=== PATIENT | female | born 1950 | race Caucasian/White ===

== ENCOUNTER 2016-07-06 13:59 | Emergency (ER) | payer OTHER ==
[2016-07-06] MEDS ORDERED: Ketorolac Tromethamine 60 MG/2 ML VIAL ONE (14:55)
--- NOTE | 2016-07-06 15:33 | ERRECORD ---
[facility] EMERGENCY RECORD HPI BACK (14:45 BGOE) CHIEF COMPLAINT: Patient presents for evaluation of pain, to the right mid back. HISTORIAN: History provided by patient, patient c/o right lower thoracic back pain over past week. 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 was sitting in training over past week so didn't have it evaluated. no numbness/tingling. radiates to lateral back but does not go past axillary line. MECHANISM OF INJURY: Mechanism of injury is unknown. LOCATION: Symptoms are localized to the back, right lower thoracic region. QUALITY: Pain is dull in nature, described as aching. SEVERITY: Maximum severity of symptoms moderate, Currently symptoms are mild. TIME COURSE: Gradual onset of symptoms. ASSOCIATED WITH: No associated abdominal pain, No associated bladder incontinence, No associated bowel incontinence, No associated dysuria, No associated fever, No associated inability to ambulate, No associated motor weakness, No associated numbness, No associated problems with urination, No associated sciatica, No associated tingling. EXACERBATED BY: Patient's condition exacerbated by movement. RELIEVED BY: Patient's condition relieved by time. ROS (14:48 BGOE) CONSTITUTIONAL: Historian denies fever. GI: Historian denies abdominal pain. GENITOURINARY FEMALE: Historian denies dysuria, denies incontinence. MUSCULOSKELETAL: Historian reports arthralgias, knees. NOTES: All systems reviewed, negative except as described above. PAST MEDICAL HISTORY MEDICAL HISTORY: Past medical history includes history of hypertension, which has been treated, Patient is compliant. (14:14 JPER) FEMALE SURGICAL HISTORY: Surgical history of hysterectomy, Surgical history of orthopedic surgery, RIGHT KNEE SCOPE, Surgical history of tubal ligation. (14:14 JPER) PSYCHIATRIC HISTORY: Notes: DENIES. (14:14 JPER) SOCIAL HISTORY: Patient denies alcohol use, Patient denies drug use, Patient has no smoking history. (14:14 JPER) NOTES: Nursing records reviewed, Agree with nursing records, Medication list reviewed. (14:50 BGOE) KNOWN ALLERGIES No Known Drug Allergies CURRENT MEDICATIONS &a-1R&a+25V*p+0X*c1210J*c152B*c15G*c2P*p-0X&a-25V&a+1RName: Mag Dhillon : [id number] MedRec: [id number] AcctNum: [id number] Prepared: Sat Jul 06, 2016 17:03 by Interface Page 1 of 3 pMD [facility] EMERGENCY RECORD Josiah HCT: TABLET : Strength - 40 mg-25 mg : ORAL Patient Dose: once a day (in the morning). (14:15 JPER) Lasix: TABLET : Strength - 20 mg : ORAL Patient Dose: once a day (in the morning). (14:17 JPER) VITAL SIGNS VITAL SIGNS: BP: 172/61, Pulse: 68, Resp: 18, Temp: 97.9 (Oral), O2 sat: 94 on Room Air, Time: 07/06/2016 14:07. (14:07 JPER) BP: 150/66, Pulse: 68, Resp: 18, O2 sat: 95 on RA, Time: 07/06/2016 15:15. (15:15 JPER) PHYSICAL EXAM (14:48 BGOE) CONSTITUTIONAL: Patient afebrile, Pulse normal, Blood pressure, hypertensive, Respiratory rate normal, Patient appears non toxic, Patient appears, in mild pain distress, Patient alert and oriented to person, place and time. HEAD: Head exam normal. EYES: Eye exam included findings of eyelids normal to inspection, Pupils equally round and reactive to light, Extraocular muscles intact. ENT: ENT exam normal. NECK: Neck exam included findings of normal range of motion, Trachea midline. RESPIRATORY CHEST: Respiratory and chest exam normal. CARDIOVASCULAR: Cardiovascular exam included findings of heart rate regular rate and rhythm. ABDOMEN FEMALE: Abdominal exam included findings of abdomen nontender, Bowel sounds normal, obese. no RUQ pain. BACK: Back exam included findings of normal inspection, range of motion normal, Tenderness, paraspinal to the right mid back, ttp over right lower paraspinal muscles of thoracic spine. no ML ttp. patient exquisitely tender and recreates pain. UPPER EXTREMITY: Upper extremity exam included findings of inspection normal, Range of motion normal, Motor strength normal, Sensation intact. LOWER EXTREMITY: Lower extremity exam included findings of inspection normal, Range of motion normal, Motor strength normal, Sensation intact, neg slr. NEURO: Neuro exam findings include patient oriented to person, place and time, [place] coma scale 15, Speech normal, Gait normal, Deep tendon reflexes normal. SKIN: Skin exam included findings of skin warm, dry, and normal in color. PSYCHIATRIC: Psychiatric exam normal. MEDICATION ADMINISTRATION SUMMARY Drug Name: Toradol intramuscular, Dose Ordered: 2 mL, Route: &a-1R&a+25V*p+0X*e2095E*c152B*c15G*c2P*p-0X&a-25V&a+1RName: Mag Dhillon : [id number] MedRec: [id number] AcctNum: [id number] Prepared: Praveen Jul 06, 2016 17:03 by Interface Page 2 of 3 pMD [facility] EMERGENCY RECORD Intramuscular, Status: Given, Time: 14:55 07/06/2016, Detailed record available in Medication Service section. PROBLEM LIST No recorded problems DIAGNOSIS (14:50 BGOE) FINAL: PRIMARY: thoracic back strain, ADDITIONAL: Hypertension. PRESCRIPTION (14:50 BGOE) Flexeril: TABLET : 5 mg : ORAL : Quantity: 5 Unit: mg Route: ORAL Schedule: every 8 hours PRN Dispense: 30 Unit: tab(s) May substitute. Refills: No Refills . NOTES: No Refills. DISPOSITION PATIENT: Disposition Type: Discharge, Disposition: *Discharge Home, Condition: Good. (14:50 BGOE) Patient left the department. (15:22 JPER) Tellez: BGOE=MD Mounika, Harry JPER=JOSE Lee, Edwige &a-1R&a+25V*p+0X*b0675L*c152B*c15G*c2P*p-0X&a-25V&a+1RName: Mag Dhillon : [id number] MedRec: [id number] AcctNum: [id number] Prepared: Praveen Jul 06, 2016 17:03 by Interface Page 3 of 3 pMD MTDD
--- NOTE | 2016-07-06 15:37 | PICIS ---
[facility] EMERGENCY RECORD TRIAGE (14:14 JPER) PATIENT: NAME: Mag Dhillon, AGE: 65, GENDER: female, : Fri1950, TIME OF GREET: Sat Jul 06, 2016 14:00, PREFERRED LANGUAGE: Mongolian, RACE: WHITE, ETHNICITY: Not or , ECODE BILLING MAP: [facility], SSN: [id number], Zip Code: [address], KG WEIGHT: 126.55, PHONE: , , , PERSON ID: [id number], PCP: MD Mancini Grover. (14:14 JPER) COMPLAINT: BACK PAIN. (14:14 JPER) ADMISSION: URGENCY: 4 Non Urgent, ADMISSION SOURCE: Home, TRANSPORT: Walk-in, BED: ED -03. (14:14 JPER) ASSESSMENT: Assessment: PT C/O RIGHT UPPER BACK PAIN RAD TO RUQ X 1 WEEK WORSE TODAY. (14:14 JPER) PAIN: Patient complains of pain described as, aching, on a scale 0-10 patient rates pain as 5, Location RIGHT UPPER POST BACK VARYING FROM 5 TO 8. (14:14 JPER) IMMUNIZATIONS: Flu vaccine up to date, Tetanus not up to date, Pneumococcal vaccine up to date. (14:14 JPER) SIRS SCORING: Heart Rate 55-109 (0), Temp range 96.8-101.1 (0), respiratory rate 12-24 (0), Mental Status altered: no (0). (14:14 JPER) TRIAGE SCREENING: Patient denies suicidal ideation, Patient denies presence of domestic violence. (14:14 JPER) PROVIDERS: TRIAGE NURSE: Edwige Lee RN. (14:14 JPER) VITAL SIGNS: BP 172/61, Pulse 68, Resp 18, Temp 97.9, (Oral), O2 Sat 94, on Room Air, Time 07/06/2016 14:07. (14:07 JPER) KNOWN ALLERGIES No Known Drug Allergies CURRENT MEDICATIONS Benicar HCT: TABLET : Strength - 40 mg-25 mg : ORAL Patient Dose: once a day (in the morning). (14:15 JPER) Lasix: TABLET : Strength - 20 mg : ORAL Patient Dose: once a day (in the morning). (14:17 JPER) VITAL SIGNS VITAL SIGNS: BP: 172/61, Pulse: 68, Resp: 18, Temp: 97.9 (Oral), O2 sat: 94 on Room Air, Time: 07/06/2016 14:07. (14:07 JPER) BP: 150/66, Pulse: 68, Resp: 18, O2 sat: 95 on RA, Time: 07/06/2016 15:15. (15:15 JPER) NURSING ASSESSMENT: BACK (14:22 JPER) CONSTITUTIONAL: Patient arrives ambulatory, Gait steady, History obtained from patient, Patient appears, anxious, obese, uncomfortable, Patient cooperative, Patient alert, Oriented to person, place and time, Skin warm, Skin dry, Skin normal in color, Mucous membranes pink, Mucous membranes &a-1R&a+25V*p+0X*t8950E*c152B*c15G*c2P*p-0X&a-25V&a+1RName: Mag Dhillon : F65 MedRec: [id number] AcctNum: [id number] Prepared: Sat Jul 06, 2016 17:08 by Interface Page 1 of 5 pMD [facility] EMERGENCY RECORD moist, Patient is well-groomed, Patient complains of RIGHT UPPER BACK PAIN X 1 WEEK. PAIN: aching pain, to the upper back, on a scale 0-10 patient rates pain as 5, Pain exacerbated by nothing, Nothing has been tried to alleviate the pain. BACK: Right radial pulse +3(easily palpated, considered normal), Left radial pulse +3(easily palpated, considered normal), Notes: RIGHT UPPER BACK PAIN RAD TO RUQ. NECK: Neck assessment findings include trachea midline. NOTES: Emotional support needed and given, Patient tolerated procedure well. NURSING PROCEDURE: DISCHARGE NOTE (15:15 JPER) DISCHARGE: Patient discharged to home, ambulating without assistance, family driving, accompanied by other family member, Summary of Care printed/ provided, Patient requested and was provided an electronic copy of Discharge Instructions, Transition record given to patient, Discharge instructions given to patient, Prescriptions given and instructions on side effects given, Above person(s) verbalized understanding of discharge instructions and follow-up care, Patient treated and evaluated by physician. BELONGINGS: Belongings remain with patient, Valuables remain with patient. NOTES: Emotional support needed and given, Patient tolerated procedure well. VITAL SIGNS: BP: 150, / 66, Pulse: 68, Resp: 18, O2 sat: 95, on: RA. MEDICATION ADMINISTRATION SUMMARY Drug Name: Toradol intramuscular, Dose Ordered: 2 mL, Route: Intramuscular, Status: Given, Time: 14:55 07/06/2016, Detailed record available in Medication Service section. MEDICATION SERVICE (14:55 BGOE) Toradol intramuscular: Order: Toradol intramuscular (ketorolac tromethamine) - Dose: 2 mL : Intramuscular Schedule: Now Ordered by: Harry Ribera MD Entered by: Harry Ribera MD Sat Jul 06, 2016 14:51 Documented as given by: Edwige Lee RN Sat Jul 06, 2016 14:55 Patient, Medication, Dose, Route and Time verified prior to administration. IM medication, Amount given: 60MG, Medication administered to right hip, Correct patient, time, route, dose and medication confirmed prior to administration, Patient advised of actions and side-effects prior to administration, Allergies confirmed and medications reviewed prior to administration, Administered by MUKUND GARCIA, Patient in position of comfort, Side rails up, Cart in lowest position, Family at bedside. &a-1R&a+25V*p+0X*s2791O*c152B*c15G*c2P*p-0X&a-25V&a+1RName: Mag Dhillon : [id number] MedRec: [id number] AcctNum: [id number] Prepared: Sat Jul 06, 2016 17:08 by Interface Page 2 of 5 pMD [facility] EMERGENCY RECORD HPI BACK (14:45 BGOE) CHIEF COMPLAINT: Patient presents for evaluation of pain, to the right mid back. HISTORIAN: History provided by patient, patient c/o right lower thoracic back pain over past week. 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 was sitting in training over past week so didn't have it evaluated. no numbness/tingling. radiates to lateral back but does not go past axillary line. MECHANISM OF INJURY: Mechanism of injury is unknown. LOCATION: Symptoms are localized to the back, right lower thoracic region. QUALITY: Pain is dull in nature, described as aching. SEVERITY: Maximum severity of symptoms moderate, Currently symptoms are mild. TIME COURSE: Gradual onset of symptoms. ASSOCIATED WITH: No associated abdominal pain, No associated bladder incontinence, No associated bowel incontinence, No associated dysuria, No associated fever, No associated inability to ambulate, No associated motor weakness, No associated numbness, No associated problems with urination, No associated sciatica, No associated tingling. EXACERBATED BY: Patient's condition exacerbated by movement. RELIEVED BY: Patient's condition relieved by time. ROS (14:48 BGOE) CONSTITUTIONAL: Historian denies fever. GI: Historian denies abdominal pain. GENITOURINARY FEMALE: Historian denies dysuria, denies incontinence. MUSCULOSKELETAL: Historian reports arthralgias, knees. NOTES: All systems reviewed, negative except as described above. PAST MEDICAL HISTORY MEDICAL HISTORY: Past medical history includes history of hypertension, which has been treated, Patient is compliant. (14:14 JPER) FEMALE SURGICAL HISTORY: Surgical history of hysterectomy, Surgical history of orthopedic surgery, RIGHT KNEE SCOPE, Surgical history of tubal ligation. (14:14 JPER) PSYCHIATRIC HISTORY: Notes: DENIES. (14:14 JPER) SOCIAL HISTORY: Patient denies alcohol use, Patient denies drug use, Patient has no smoking history. (14:14 JPER) NOTES: Nursing records reviewed, Agree with nursing records, Medication list reviewed. (14:50 BGOE) PHYSICAL EXAM (14:48 BGOE) CONSTITUTIONAL: Patient afebrile, Pulse normal, Blood pressure, hypertensive, Respiratory rate normal, Patient appears non toxic, Patient appears, in mild &a-1R&a+25V*p+0X*p6383Z*c152B*c15G*c2P*p-0X&a-25V&a+1RName: Mag Dhillon : F65 MedRec: [id number] AcctNum: [id number] Prepared: Praveen Jul 06, 2016 17:08 by Interface Page 3 of 5 pMD [facility] EMERGENCY RECORD pain distress, Patient alert and oriented to person, place and time. HEAD: Head exam normal. EYES: Eye exam included findings of eyelids normal to inspection, Pupils equally round and reactive to light, Extraocular muscles intact. ENT: ENT exam normal. NECK: Neck exam included findings of normal range of motion, Trachea midline. RESPIRATORY CHEST: Respiratory and chest exam normal. CARDIOVASCULAR: Cardiovascular exam included findings of heart rate regular rate and rhythm. ABDOMEN FEMALE: Abdominal exam included findings of abdomen nontender, Bowel sounds normal, obese. no RUQ pain. BACK: Back exam included findings of normal inspection, range of motion normal, Tenderness, paraspinal to the right mid back, ttp over right lower paraspinal muscles of thoracic spine. no ML ttp. patient exquisitely tender and recreates pain. UPPER EXTREMITY: Upper extremity exam included findings of inspection normal, Range of motion normal, Motor strength normal, Sensation intact. LOWER EXTREMITY: Lower extremity exam included findings of inspection normal, Range of motion normal, Motor strength normal, Sensation intact, neg slr. NEURO: Neuro exam findings include patient oriented to person, place and time, [place] coma scale 15, Speech normal, Gait normal, Deep tendon reflexes normal. SKIN: Skin exam included findings of skin warm, dry, and normal in color. PSYCHIATRIC: Psychiatric exam normal. EVENTS TRANSFER: Triage to Emergency Main ED -03. (Sat Jul 06, 2016 14:14 JPER) Removed from [facility] Main ED -03. (15:22 JPER) O2SAT INTERPRETATION (14:50 BGOE) O2SAT: Single pulse oximetry, Oxygen saturation interpretation: Normal. PROBLEM LIST No recorded problems DIAGNOSIS (14:50 BGOE) FINAL: PRIMARY: thoracic back strain, ADDITIONAL: Hypertension. DISPOSITION PATIENT: Disposition Type: Discharge, Disposition: *Discharge Home, Condition: Good. (14:50 BGOE) Patient left the department. (15:22 JPER) &a-1R&a+25V*p+0X*k8482F*c152B*c15G*c2P*p-0X&a-25V&a+1RName: Mag Dhillon : F65 MedRec: [id number] AcctNum: [id number] Prepared: Sat Jul 06, 2016 17:08 by Interface Page 4 of 5 pMD [facility] EMERGENCY RECORD INSTRUCTION (14:51 BGOE) DISCHARGE: THORACIC STRAIN. FOLLOWUP: MD Addis, Nabil, [facility], [address] [place], [place] [id number], , Follow up with Primary Care Physician in 1-2 days. SPECIAL: Follow-up with your PCP Tylenol or Advil (short term) for Pain heat/ice/massage activity as tolerated. PRESCRIPTION (14:50 BGOE) Flexeril: TABLET : 5 mg : ORAL : Quantity: 5 Unit: mg Route: ORAL Schedule: every 8 hours PRN Dispense: 30 Unit: tab(s) May substitute. Refills: No Refills . NOTES: No Refills. IMAGING (15:18 JPER) *DISCHARGE INSTRUCTIONS RECEIPT: Image captured from scanner. *SUPPLY CHARGE SHEET: Image captured from scanner. ADMIN DIGITAL SIGNATURE: JOSE Lee Jana. (15:21 JPER) MD Ribera Brian. (16:58 BGOE) Tellez: BGOE=MD Ribera Brian JPER=JOSE Lee Jana &a-1R&a+25V*p+0X*t2835Y*c152B*c15G*c2P*p-0X&a-25V&a+1RName: Jacquie Mag : F65 MedRec: [id number] AcctNum: [id number] Prepared: Praveen Jul 06, 2016 17:08 by Interface Page 5 of 5 pMD MTDD
== END 2016-07-06 15:15 | disposition home or self-care (01) ==
LOC: MADERS 13:59
DX: S29.012A Strain of muscle and tendon of back wall of thorax, initial encounter (principal); I10 Essential (primary) hypertension; Z90.710 Acquired absence of both cervix and uterus; Z98.51 Tubal ligation status
CPT/HCPCS: 96372; J1885

== ENCOUNTER 2017-09-06 21:09 | Emergency (ER) | payer OTHER, MEDICARE ==
[2017-09-06] MEDS ORDERED: predniSONE 20 MG TAB ONE (22:05)
[2017-09-06] MEDS ORDERED: Amoxicillin/Potassium Clav 875 MG TAB ONE (22:05)
== END 2017-09-06 22:30 | disposition home or self-care (01) ==
LOC: MADERS 21:09
DX: J20.9 Acute bronchitis, unspecified (principal); I10 Essential (primary) hypertension; Z79.899 Other long term (current) drug therapy
CPT/HCPCS: J7506; J7620

== ENCOUNTER 2017-11-30 10:13 | Emergency (ER) | payer OTHER, MEDICARE ==
[2017-11-30] MEDS ORDERED: Acetaminophen/Codeine 30-300mg Tablet ONE (10:49)
[2017-11-30] MEDS ORDERED: Benzonatate 100 MG CAP ONE (10:49)
[2017-11-30] MEDS ORDERED: Dexamethasone 4 MG TAB ONE (10:49)
--- NOTE | 2017-11-30 13:06 | RAD ---
CHEST PA AND LATERAL: Date: 11/30/17 HISTORY: 67-year-old female with history of cough. FINDINGS: Heart size is within normal limits. There is some anterior right hemidiaphragm elevation. There is so me very subtle patchy linear parenchymal change in the left upper lung zone, nonspecific. This could conceivably represent some acute pneumonitis, although could represent some underlying chronic change . No significant confluent process. IMPRESSION: Some subtle linear parenchymal change in the left upper lobe, nonspecific. This could conceivably rep resent some very subtle pneumonitis versus chronic change. Anterior right hemidiaphragm elevation. No significant confluent process. POS: [facility]
== END 2017-11-30 12:05 | disposition home or self-care (01) ==
LOC: MADERS 10:13
DX: J15.9 Unspecified bacterial pneumonia (principal); I10 Essential (primary) hypertension; Z79.899 Other long term (current) drug therapy
CPT/HCPCS: 71046; 87804; J7620; J8540

== ENCOUNTER 2018-03-03 12:38 | Emergency (ER) | payer MEDICARE, OTHER ==
[2018-03-03 13:08] LABS: Bilirubin Small (Negative); Blood, Urine Large (Negative); Clarity Slightly Cloudy (Clear); Glucose, Urine (Dipstick) Negative (Negative); Leukocyte Small (Negative); Nitrite Positive (Negative); Protein, Urine (Dipstick) 30 mg/dL (Neg-Trace)
[2018-03-03 13:09] LABS: Bacteria/HPF 1+ HPF (None Seen); RBC/HPF GREATER THAN 50-TNTC HPF (0-3)
[2018-03-03] MEDS ORDERED: Cephalexin 250 MG CAP ONE (13:32)
[2018-03-03 14:14] LABS: Anion Gap 12 mmol/L (10-20); BUN (Urea Nitrogen) 12 mg/dL (9.8-20.1); Calc. Creatinine Clearance 0 mL/min (70-130); Calcium 9.2 mg/dL (7.8-10.44); Carbon Dioxide 26 mmol/L (23-31); Chloride 109 mmol/L (98-107); Estimated GFR-MDRD 86; Glucose 90 mg/dL (80-115); Magnesium 2.2 mg/dL (1.6-2.6); Potassium 4.1 mmol/L (3.5-5.1); Sodium 143 mmol/L (136-145)
== END 2018-03-03 14:44 | disposition home or self-care (01) ==
LOC: MADERS 12:38
DX: N39.0 Urinary tract infection, site not specified (principal); I10 Essential (primary) hypertension; Z79.899 Other long term (current) drug therapy
CPT/HCPCS: 36415; 80048; 81003; 81015; 83735; 87086; 99283

== ENCOUNTER 2019-02-25 23:49 | Emergency (ER) | payer MEDICARE ==
[2019-02-26 00:25] LABS: Bilirubin Negative (Negative); Blood, Urine Large (Negative); Clarity Cloudy (Clear); Glucose, Urine (Dipstick) Negative (Negative); Leukocyte Moderate (Negative); Nitrite Negative (Negative); Protein, Urine (Dipstick) Trace mg/dL (Neg-Trace)
[2019-02-26 00:27] LABS: Bacteria/HPF Rare-Few HPF (None Seen); RBC/HPF Greater than 50 HPF (0-3)
[2019-02-26] MEDS ORDERED: Morphine 4 MG/ML VIAL ONE ×2 (00:28→02:28)
[2019-02-26] MEDS ORDERED: Sodium Chloride 0.9% 1,000 ML ONE (00:28)
[2019-02-26 01:10] LABS: #Basophils 0.1 thou/uL (0.0-0.2); #Eosinphils 0.1 thou/uL (0.0-0.7); #Lymphocytes 1.1 thou/uL (1.20-3.40); #Monocytes 0.7 thou/uL (0.11-0.59); #Neutrophils 3.6 thou/uL (1.40-6.50); %Basophils 1.3 % (0.0-1.0); %Eosinophils 1.5 % (0.0-10.0); %Lymphocytes 22.1 % (21.0-51.0); %Monocytes 11.9 % (0.0-10.0); %Neutrophils 63.3 % (42.0-75.0); Hemoglobin 12.9 g/dL (12.0-16.0); Mean Corpuscular Hemoglobin 29.1 pg (27.0-31.0); Mean Corpuscular Volume 90.9 fL (78.0-98.0); Platelet Count 69 thou/uL (130-400); Platelet Morphology Comment Appears Decreased; Red Blood Cell (RBC) Count 4.35 mill/uL (4.20-5.40); White Blood Cell (WBC) Count 5.5 thou/uL (4.8-10.8)
[2019-02-26 01:12] LABS: RBC Morphology Normal
[2019-02-26 01:13] LABS: ALT (SGPT) 29 U/L (8-55); AST (SGOT) 28 U/L (5-34); Albumin 3.6 g/dL (3.4-4.8); Alkaline Phosphatase 121 U/L (40-150); Anion Gap 13 mmol/L (10-20); BUN (Urea Nitrogen) 21 mg/dL (9.8-20.1); Bilirubin, Total 0.4 mg/dL (0.2-1.2); Calc. Creatinine Clearance 0 mL/min (70-130); Calcium 9.6 mg/dL (7.8-10.44); Carbon Dioxide 22 mmol/L (23-31); Chloride 109 mmol/L (98-107); Estimated GFR-MDRD 51; Glucose 121 mg/dL (80-115); Lipase 20 U/L (8-78); Potassium 3.9 mmol/L (3.5-5.1); Protein, Total 6.6 g/dL (6.0-8.3); Sodium 140 mmol/L (136-145)
[2019-02-26] MEDS ORDERED: Ketorolac Tromethamine 30 MG/ML VIAL ONE (02:36)
[2019-02-26] MEDS ORDERED: Levofloxacin 500 mg/D5W 100 ml Premix Bag ONE (03:01)
--- NOTE | 2019-02-26 08:05 | CT ---
PRELIMINARY REPORT/[facility]/EMERGENCY AFTER HOURS PROCEDURE EXAM: CT Abdomen and Pelvis With Contrast EXAM DATE/TIME: 02/26/2019 1:23 AM CLINICAL HISTORY: 68 years old, female; Abdominal pain; Flank; Right lower quadrant (rlq); Patient HX: PT having rlq pain. Blood in urine. TECHNIQUE: Imaging protocol: Computed tomography of the abdomen and pelvis with intravenous contrast. Radiation optimization: All CT scans at this facility use at least one of these dose optimization techniques: automated exposure control; mA and/or kV adjustment per patient size (includes targeted exams where dose is matched to clinical indication); or iterative reconstruction. Contrast material: ISOVUE; Contrast volume: 96 ml; Contrast route: RT ARM; COMPARISON: No relevant prior studies available. FINDINGS: Lungs: The lung bases are clear. Liver: Prominent lobular liver contour likely indicates evidence for cirrhosis. Please correlate clinically. Gallbladder and bile ducts: Prior cholecystectomy, no significant biliary tree dilation. Pancreas: Unremarkable. Spleen: The spleen appears borderline to mildly enlarged with a length of about 13 cm. No perisplenic fluid. Adrenals: Unremarkable. Kidneys and ureters: Delayed concentration of contrast by the right kidney. Moderate right perinephric stranding/fluid. Moderate to severe right hydronephrosis and hydroureter. There is a 5 x 7 mm mid to distal right ureteral calculus, about 8 cm from the urinary bladder. The calculus lies at about the level of S2. 9-10 mm probable cyst in the upper left kidney. The left kidney otherwise appears essentially unremarkable. Stomach and bowel: Evidence for prior gastric surgery. Possibility of slightly thickened mucosa/wall in the distal antrum of the stomach. This is a nonspeci fic appearance, and could be transient on CT, but could also represent evidence for gastritis or peptic ulcer disease. Please correlate clinically. There are no CT findings to strongly suggest diverticulitis. Appendix: The appendix is visualized and appears normal. Intraperitoneal space: No free air, ascites, or bowel distention. Vasculature: No evidence for abdominal aortic aneurysm. Lymph nodes: No retroperitoneal adenopathy. Bladder: The urinary bladder appears essentially unremarkable by CT. Reproductive: Apparent prior hysterectomy. No definite ovarian/adnexal cyst or mass by CT. Bones/joints: Prominent degenerative disc changes at L5-S1. Soft tissues: No significant acute finding. IMPRESSION: 1. 5 x 7 mm mid to distal right ureteral calculus, see above details. 2. Moderate to severe right hydronephrosis and hydroureter. 3. Normal appendix. 4. Possible thickened mucosa/wall in the distal stomach, see above discussion. 5. No free air or bowel distention. 6. Other findings discussed above. Thank you for allowing us to participate in the care of your patient. Dictated and Authenticated by: Juan Ferraro MD 02/26/2019 2:24 AM Central Time ([place] & [place]) FINAL REPORT CT ABDOMEN AND PELVIS: Date: 02/26/19 COMPARISON: None. HISTORY: Abdominal pain, flank pain, right lower quadrant pain. FINDINGS: Imaged lung bases are unremarkable. There is a gastric suture line present. No pneumothorax is evident. Peripheral contour of the liver is irregular suggesting cirrhosis. Spleen is mildly enlarged measurin g 13.9 cm in craniocaudal dimension, suspicious for portal hypertension. There is fatty atrophy of the pancreas. The adrenal glands are unremarkable. There is a tiny hypodens ity in the upper pole of the left kidney measuring 8 mm, too small to characterize. There is hydronephrosis, hydroureter, and perinephric stranding on the right. This is secondary to an obstructing stone within the right ureter at the axial level of the mid sacrum,, measuring approximately 6-7 mm. Limited assessment of the bowel without oral contrast media demonstrates no acute findings. The appen catia is unremarkable. There is scattered atherosclerotic calcification of the abdominal aorta and its branches. No lymphade nopathy seen in the abdomen or pelvis. Osseous structures demonstrate no acute findings. IMPRESSION: Obstructive uropathy on the right secondary to a 6-7 mm obstructing stone within the right ureter at the axial level of the mid sacrum. Additional findings as detailed above. Code QA Transcribed Date/Time: 02/26/2019 8:46 AM
== END 2019-02-26 04:03 | disposition home or self-care (01) ==
LOC: MADERS 23:49
DX: N13.2 Hydronephrosis with renal and ureteral calculous obstruction (principal); N30.90 Cystitis, unspecified without hematuria; I10 Essential (primary) hypertension; Z87.891 Personal history of nicotine dependence; Z79.899 Other long term (current) drug therapy
CPT/HCPCS: 74177; 80053; 81003; 81015; 83690; 85025; 87086; 96361; 96365; 96375; 96376; J1885; J1956; J2270; J7050

== ENCOUNTER 2019-06-15 21:31 | Emergency (ER) | payer MEDICARE ==
--- NOTE | 2019-06-15 22:34 | RAD ---
RIGHT HUMERUS: TWO VIEWS 06/15/19 HISTORY: Injury. No fracture. Mild degenerative change at the shoulder and AC joint. IMPRESSION: No acute process. POS: OFF
[2019-06-15] MEDS ORDERED: HYDROcodone/Acetaminophen 5/325 mg Tablet ONE (22:51)
== END 2019-06-15 23:21 | disposition home or self-care (01) ==
LOC: MADERS 21:31
DX: S50.11XA Contusion of right forearm, initial encounter (principal); I10 Essential (primary) hypertension; Z87.891 Personal history of nicotine dependence; W18.30XA Fall on same level, unspecified, initial encounter
CPT/HCPCS: 99283

== ENCOUNTER 2019-07-12 15:57 | Emergency (ER) | payer MEDICARE ==
[2019-07-12] MEDS ORDERED: Adacel (T-DAP) 0.5 ML SYRINGE ONE (16:59)
== END 2019-07-12 17:25 | disposition home or self-care (01) ==
LOC: MADERS 15:57
DX: S50.871A Other superficial bite of right forearm, initial encounter (principal); S60.471A Other superficial bite of left index finger, initial encounter; I10 Essential (primary) hypertension; Z87.891 Personal history of nicotine dependence; W55.01XA Bitten by cat, initial encounter; W54.0XXA Bitten by dog, initial encounter
CPT/HCPCS: 90471; 90715

== ENCOUNTER 2019-10-30 13:28 | Emergency (ER) | payer MEDICARE, MEDICAID ==
--- NOTE | 2019-10-30 15:17 | RAD ---
Radiograph left foot 3 views: DATE: 10/30/2019 HISTORY: 68-year-old female with left foot pain FINDINGS: There is diffuse soft tissue edema, including dorsum of foot. Mild mild DJD at first MTP without arora ux valgus. DJD at second through fifth TMT's.. No acute displaced fracture identified. No dislocation. IMPRESSION: 1. Soft tissue edema diffusely. 2. 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 3. No fracture identified.
== END 2019-10-30 15:19 | disposition home or self-care (01) ==
LOC: MADERS 13:28
DX: S92.412A Displaced fracture of proximal phalanx of left great toe, initial encounter for closed fracture (principal); I10 Essential (primary) hypertension; Z87.891 Personal history of nicotine dependence; Z79.899 Other long term (current) drug therapy; W18.30XA Fall on same level, unspecified, initial encounter

== ENCOUNTER 2019-12-24 19:58 | Emergency (ER) | payer MEDICARE, MEDICAID ==
[2019-12-24 20:30] LABS: Bilirubin Small (Negative); Blood, Urine Large (Negative); Clarity Cloudy (Clear); Glucose, Urine (Dipstick) Negative (Negative); Leukocyte Negative (Negative); Nitrite Negative (Negative); Protein, Urine (Dipstick) > or equal to 300 mg/dL (Neg-Trace)
[2019-12-24 20:38] LABS: Bacteria/HPF 3+ HPF (None Seen); Mucous/LPF None Seen LPF (<2+); RBC/HPF Greater than 50 HPF (0-3)
[2019-12-24 20:39] LABS: Calcium Oxalate Crystals 1+ HPF (None Seen)
--- NOTE | 2019-12-24 20:44 | CT ---
CT OF THE ABDOMEN AND PELVIS WITHOUT IV CONTRAST INDICATION: 69-year-old female with abdominal pain COMPARISON: CT abdomen pelvis dated February 26, 2019 FINDINGS: The lack of IV contrast limits evaluation of the solid organs of the abdomen and pelvis. ABDOMEN: Lung bases: Clear Liver: Cirrhotic morphology to the liver Gallbladder: Surgically absent Pancreas: Normal. Adrenal glands: Normal. Spleen: Enlarged measuring 14 cm Kidneys and ureters: There is [id number] right hydronephrosis. There is a 5 mm proximal right u reteral calculus. Unopacified left kidney is unremarkable appearing. Vasculature: There are moderate vascular calcifications seen involving the visualized vasculature. Lymph nodes:No lymphadenopathy. Free fluid in abdomen:No free fluid is evident. PELVIS: Small and large bowel: Normal Appendix:Normal Bladder: Normal. Rectal and perirectal soft tissues:Normal. Reproductive structures: Surgically absent Free fluid in pelvis: No free fluid is evident. Lymphadenopathy pelvis: No lymphadenopathy is evident. Osseous structures: No acute osseous abnormality. No destructive osteolytic or osteoblastic lesion i s identified. There is scattered degenerative and osteoarthritic changes. Soft tissues:Normal. IMPRESSION: 1. Right ureteral calculus inducing mild to moderate right hydronephrosis. 2. Cirrhosis with findings of portal hypertension.
[2019-12-24] MEDS ORDERED: Tamsulosin HCl 0.4 MG CAP ONE (20:53)
[2019-12-24] MEDS ORDERED: Sodium Chloride 0.9% 1,000 ML ONE (20:53)
[2019-12-24] MEDS ORDERED: Ondansetron PF 4 MG/2 ML Vial ONE (20:53)
[2019-12-24] MEDS ORDERED: Morphine 2 MG/ML SYRINGE ONE (20:56)
[2019-12-24 21:10] LABS: Hemoglobin 13.4 g/dL (12.0-16.0); Mean Corpuscular HGB CONC 31.3 g/dL (32.0-36.0); Mean Corpuscular Hemoglobin 29.6 pg (27.0-31.0); Mean Corpuscular Volume 94.5 fL (78.0-98.0); Mean Platelet Volume 8.5 fL (7.4-10.4); Platelet Count 96 thou/uL (130-400); RBC Distribution Width 13.4 % (11.5-14.5); Red Blood Cell (RBC) Count 4.51 mill/uL (4.20-5.40)
[2019-12-24 21:18] LABS: Anion Gap 15 mmol/L (10-20); BUN (Urea Nitrogen) 13 mg/dL (9.8-20.1); Calc. Creatinine Clearance 0 mL/min (70-130); Calcium 9.5 mg/dL (7.8-10.44); Carbon Dioxide 21 mmol/L (23-31); Chloride 112 mmol/L (98-107); Estimated GFR-MDRD 87; Glucose 110 mg/dL (80-115); Potassium 4.3 mmol/L (3.5-5.1); Sodium 144 mmol/L (136-145)
[2019-12-24 21:27] LABS: #Basophils 0.1 thou/uL (0.0-0.2); #Eosinphils 0.1 thou/uL (0.0-0.7); #Monocytes 0.5 thou/uL (0.11-0.59); #Neutrophils 3.1 thou/uL (1.40-6.50); %Basophils 1.5 % (0.0-1.0); %Eosinophils 1.5 % (0.0-10.0); %Lymphocytes 25.1 % (21.0-51.0); %Monocytes 9.6 % (0.0-10.0); %Neutrophils 62.2 % (42.0-75.0); Platelet Morphology Comment Appears Decreased; RBC Morphology Normal
[2019-12-24 21:31] LABS: MDiff Complete? YES
[2019-12-24] MEDS ORDERED: Ketorolac Tromethamine 30 MG/ML VIAL ONE (21:39)
== END 2019-12-24 21:50 | disposition home or self-care (01) ==
LOC: MADERS 19:58
DX: N13.2 Hydronephrosis with renal and ureteral calculous obstruction (principal); I10 Essential (primary) hypertension; Z87.891 Personal history of nicotine dependence; Z79.899 Other long term (current) drug therapy
CPT/HCPCS: 74176; 80048; 81003; 81015; 85025; 96361; 96374; 96375; J1885; J2270; J2405; J7050

== ENCOUNTER 2020-01-08 02:19 | Emergency (ER) | payer MEDICARE, MEDICAID ==
[2020-01-08] MEDS ORDERED: Ketorolac Tromethamine 30 MG/ML VIAL ONE (02:48)
[2020-01-08] MEDS ORDERED: Ondansetron PF 4 MG/2 ML Vial ONE ×2 (02:48→02:49)
[2020-01-08] MEDS ORDERED: Sodium Chloride 0.9% 1,000 ML ONE (02:48)
[2020-01-08 03:15] LABS: Hemoglobin 12.7 g/dL (12.0-16.0); Mean Corpuscular HGB CONC 31.1 g/dL (32.0-36.0); Mean Corpuscular Hemoglobin 29.3 pg (27.0-31.0); Mean Corpuscular Volume 94.1 fL (78.0-98.0); Mean Platelet Volume 6.8 fL (7.4-10.4); Platelet Count 85 thou/uL (130-400); RBC Distribution Width 13.4 % (11.5-14.5); Red Blood Cell (RBC) Count 4.35 mill/uL (4.20-5.40); White Blood Cell (WBC) Count 5.4 thou/uL (4.8-10.8)
[2020-01-08 03:16] LABS: Bilirubin Negative (Negative); Blood, Urine Large (Negative); Clarity Cloudy (Clear); Glucose, Urine (Dipstick) Negative (Negative); Ketone, Urine Negative (Negative); Leukocyte Moderate (Negative); Nitrite Negative (Negative); Protein, Urine (Dipstick) 100 mg/dL (Neg-Trace); pH, Urine 8.5 (5.0-9.0)
[2020-01-08 03:23] LABS: #Eosinphils 0.1 thou/uL (0.0-0.7); #Monocytes 0.6 thou/uL (0.11-0.59); #Neutrophils 3.7 thou/uL (1.40-6.50); %Basophils 0.7 % (0.0-1.0); %Lymphocytes 18.1 % (21.0-51.0); %Monocytes 10.6 % (0.0-10.0); %Neutrophils 69.5 % (42.0-75.0); Platelet Morphology Comment Appears Decreased
[2020-01-08 03:26] LABS: Bacteria/HPF 1+ HPF (None Seen)
[2020-01-08 03:29] LABS: ALT (SGPT) 24 U/L (8-55); AST (SGOT) 31 U/L (5-34); Albumin 3.6 g/dL (3.4-4.8); Alkaline Phosphatase 139 U/L (40-110); Anion Gap 14 mmol/L (10-20); BUN (Urea Nitrogen) 14 mg/dL (9.8-20.1); Bilirubin, Total 0.5 mg/dL (0.2-1.2); Calc. Creatinine Clearance 0 mL/min (70-130); Calcium 9.1 mg/dL (7.8-10.44); Carbon Dioxide 22 mmol/L (23-31); Chloride 110 mmol/L (98-107); Estimated GFR-MDRD 70; Globulin 3.3 g/dL (2.4-3.5); Glucose 127 mg/dL (80-115); Potassium 3.9 mmol/L (3.5-5.1); Protein, Total 6.9 g/dL (6.0-8.3); Sodium 142 mmol/L (136-145)
[2020-01-08] MEDS ORDERED: cefTRIAXone\\ROCEPHIN 1 GM VIAL ONE (03:49)
== END 2020-01-08 04:09 | disposition home or self-care (01) ==
LOC: MADERS 02:19
DX: N39.0 Urinary tract infection, site not specified (principal); N23 Unspecified renal colic; R11.0 Nausea; I10 Essential (primary) hypertension; Z87.891 Personal history of nicotine dependence; Z79.899 Other long term (current) drug therapy
CPT/HCPCS: 80053; 81003; 81015; 85025; 96361; 96372; 96374; 96375; J0696; J1885; J2405; J7050

== ENCOUNTER 2020-02-24 21:19 | Emergency (ER) | payer MEDICARE, MEDICAID ==
[2020-02-24 22:01] LABS: Bilirubin Negative (Negative); Blood, Urine Trace (Negative); Clarity Slightly Cloudy (Clear); Glucose, Urine (Dipstick) Negative (Negative); Ketone, Urine Negative (Negative); Leukocyte Trace (Negative); Nitrite Negative (Negative); Protein, Urine (Dipstick) Negative (Neg-Trace); Urobilinogen 0.2 mg/dL (Less than 2); pH, Urine 6.5 (5.0-9.0)
[2020-02-24 22:03] LABS: Bacteria/HPF 1+ HPF (None Seen); Calcium Oxalate Crystals 2+ HPF (None Seen); RBC/HPF 0-3 HPF (0-3); Specific Gravity, Urine 1.025 (1.002-1.036); WBC/HPF 0-3 HPF (0-3)
[2020-02-24 22:39] LABS: #Basophils 0.1 thou/uL (0.0-0.2); #Eosinphils 0.1 thou/uL (0.0-0.7); #Lymphocytes 1.4 thou/uL (1.20-3.40); #Monocytes 0.5 thou/uL (0.11-0.59); #Neutrophils 2.8 thou/uL (1.40-6.50); %Basophils 1.2 % (0.0-1.0); %Eosinophils 2.3 % (0.0-10.0); %Lymphocytes 27.9 % (21.0-51.0); %Monocytes 10.6 % (0.0-10.0); Hemoglobin 13.2 g/dL (12.0-16.0); Large Platelets SLIGHT; MDiff Complete? YES; Mean Corpuscular HGB CONC 31.7 g/dL (32.0-36.0); Mean Corpuscular Hemoglobin 29.3 pg (27.0-31.0); Mean Corpuscular Volume 92.6 fL (78.0-98.0); Mean Platelet Volume 7.6 fL (7.4-10.4); Platelet Count 103 thou/uL (130-400); Platelet Morphology Comment Appears Decreased; RBC Distribution Width 13.7 % (11.5-14.5); White Blood Cell (WBC) Count 4.9 thou/uL (4.8-10.8)
[2020-02-24 22:43] LABS: ALT (SGPT) 29 U/L (8-55); AST (SGOT) 37 U/L (5-34); Albumin 3.6 g/dL (3.4-4.8); Alkaline Phosphatase 156 U/L (40-110); Anion Gap 15 mmol/L (10-20); BUN (Urea Nitrogen) 12 mg/dL (9.8-20.1); Bilirubin, Total 0.3 mg/dL (0.2-1.2); Calc. Creatinine Clearance 0 mL/min (70-130); Calcium 8.9 mg/dL (7.8-10.44); Carbon Dioxide 21 mmol/L (23-31); Chloride 110 mmol/L (98-107); Estimated GFR-MDRD Greater than 90; Globulin 3.5 g/dL (2.4-3.5); Glucose 126 mg/dL (80-115); Lipase 22 U/L (8-78); Potassium 3.8 mmol/L (3.5-5.1); Protein, Total 7.1 g/dL (6.0-8.3); Sodium 142 mmol/L (136-145)
--- NOTE | 2020-02-24 23:04 | CT ---
CT Stone Protocol: 02/24/2020 10:10 PM HISTORY: Bladder spasms for 4 days COMPARISON: 12/24/2019 TECHNIQUE: Multiple contiguous axial images were obtained and a CT of the abdomen and pelvis without IV contrast . Coronal and sagittal reformats were performed. FINDINGS: This examination is limited for the evaluation of solid organs and vascular structures due to the lac k of intravenous contrast. Lower Chest: within normal limits. Abdomen: Liver: Cirrhotic without focal liver lesions. Bile Ducts: Normal caliber. Gallbladder: Removed Pancreas: within normal limits. Spleen: Enlarged Adrenals: within normal limits. Kidneys: There is prominence of the right renal pelvis which may represent an extrarenal pelvis. Pelvis: Reproductive Organs: Status post hysterectomy. Ureters: within normal limits. Multiple stable calcifications in the pelvis likely represent phleboli ths. One of these round calcifications is very near the right ureterovesical junction but likely medial to it. Bladder: within normal limits. Bowel: Normal caliber. The patient is status post gastric sleeve procedure. Mesenteric Lymph Nodes: No enlarged mesenteric lymph nodes. Peritoneum: No ascites or free air, no fluid collection. Vessels: Atherosclerotic calcifications in the aorta Retroperitoneum: within normal limits. Abdominal Wall: within normal limits. Bones: Degenerative and postsurgical changes in the spine. IMPRESSION: Cirrhosis and splenomegaly
[2020-02-24] MEDS ORDERED: HYDROcodone/Acetaminophen 10/325 mg Tablet ONE (23:44)
== END 2020-02-24 23:51 | disposition home or self-care (01) ==
LOC: MADERS 21:19
DX: N32.89 Other specified disorders of bladder (principal); I10 Essential (primary) hypertension; Z87.891 Personal history of nicotine dependence; Z79.899 Other long term (current) drug therapy
CPT/HCPCS: 36415; 74176; 80053; 81001; 83605; 83690; 85025; 87086

== ENCOUNTER 2021-03-14 17:45 | Emergency (ER) | payer MEDICARE, MEDICAID ==
[2021-03-14] MEDS ORDERED: Lidocaine 2% 20 ml MDV ONE (18:09)
== END 2021-03-14 20:13 | disposition home or self-care (01) ==
LOC: MADERS 17:45
DX: S61.305A Unspecified open wound of left ring finger with damage to nail, initial encounter (principal); I10 Essential (primary) hypertension; Z87.891 Personal history of nicotine dependence; W45.8XXA Other foreign body or object entering through skin, initial encounter
CPT/HCPCS: 12001

== ENCOUNTER 2021-10-06 17:27 | Emergency (ER) | payer MEDICARE, MEDICAID ==
[2021-10-06 18:33] LABS: #Lymphocytes 1.1 thou/uL (1.20-3.40); #Monocytes 0.5 thou/uL (0.11-0.59); #Neutrophils 3.6 thou/uL (1.40-6.50); %Basophils 0.9 % (0.0-1.0); %Eosinophils 0.7 % (0.0-10.0); %Lymphocytes 20.6 % (21.0-51.0); %Monocytes 10.1 % (0.0-10.0); %Neutrophils 67.6 % (42.0-75.0); Hemoglobin 13.1 g/dL (12.0-16.0); Mean Corpuscular HGB CONC 32.4 g/dL (32.0-36.0); Mean Corpuscular Hemoglobin 32.9 pg (27.0-31.0); Mean Corpuscular Volume 101.7 fL (78.0-98.0); Mean Platelet Volume 11.3 fL (7.4-10.4); Platelet Count 91 thou/uL (130-400); RBC Distribution Width 14.5 % (11.5-14.5); Red Blood Cell (RBC) Count 3.99 mill/uL (4.20-5.40); White Blood Cell (WBC) Count 5.3 thou/uL (4.8-10.8)
[2021-10-06] MEDS ORDERED: Nitroglycerin 0.4 MG TAB 1 EACH ONE (18:33)
[2021-10-06] MEDS ORDERED: Aspirin Chewable 81 MG TAB ONE (18:33)
[2021-10-06 18:47] LABS: ALT (SGPT) 28 U/L (8-55); AST (SGOT) 39 U/L (5-34); Albumin 3.4 g/dL (3.4-4.8); Alkaline Phosphatase 97 U/L (40-110); Anion Gap 17 mmol/L (10-20); BUN (Urea Nitrogen) 13 mg/dL (9.8-20.1); Bilirubin, Total 1.7 mg/dL (0.2-1.2); Calc. Creatinine Clearance 0 mL/min (70-130); Calcium 8.7 mg/dL (7.8-10.44); Carbon Dioxide 22 mmol/L (23-31); Chloride 106 mmol/L (98-107); Glucose 145 mg/dL (83-110); Large Platelets SLIGHT; Lipase 17 U/L (8-78); Platelet Morphology Comment Appears Decreased; Potassium 4.1 mmol/L (3.5-5.1); Protein, Total 6.4 g/dL (5.8-8.1); Sodium 141 mmol/L (136-145)
== END 2021-10-06 19:44 | disposition home or self-care (01) ==
LOC: MADERS 17:27
DX: R07.9 Chest pain, unspecified (principal); I10 Essential (primary) hypertension; Z79.899 Other long term (current) drug therapy
CPT/HCPCS: 71045; 80053; 83690; 84484; 85025; 93005; 94760

== ENCOUNTER 2021-11-07 11:01 | Emergency (ER) | payer MEDICARE, MEDICAID ==
[2021-11-07] MEDS ORDERED: Benzonatate 100 MG CAP ONE (12:22)
[2021-11-07] MEDS ORDERED: Albuterol Sulfate 2.5 mg/3 ml Neb ONE (12:22)
[2021-11-07] MEDS ORDERED: Albuterol 200 PUFF (6.7GM INHALER) ONE (12:24)
[2021-11-07 22:02] LABS: SARS-CoV-2 PCR by NAA DETECTED (NotDetected)
== END 2021-11-07 13:26 | disposition home or self-care (01) ==
LOC: MADERS 11:01
DX: U07.1 COVID-19 (principal); J20.8 Acute bronchitis due to other specified organisms; I10 Essential (primary) hypertension; Z87.442 Personal history of urinary calculi; Z87.891 Personal history of nicotine dependence; Z79.899 Other long term (current) drug therapy
CPT/HCPCS: 71045; 87804 ×2; U0003; U0005; J7611

== ENCOUNTER 2022-02-16 18:51 | Emergency (ER) | payer OTHER, MEDICAID ==
[2022-02-16] MEDS ORDERED: Sodium Chloride 0.9% 1,000 ML ONE (19:40)
[2022-02-16] MEDS ORDERED: Meclizine HCl 25 MG TAB ONE (19:40)
[2022-02-16 19:47] LABS: #Basophils 0.1 thou/uL (0.0-0.2); #Eosinphils 0.1 thou/uL (0.0-0.7); #Monocytes 0.5 thou/uL (0.11-0.59); %Basophils 1.8 % (0.0-1.0); %Eosinophils 2.5 % (0.0-10.0); %Lymphocytes 35.3 % (21.0-51.0); %Monocytes 12.2 % (0.0-10.0); %Neutrophils 48.3 % (42.0-75.0); Hemoglobin 13.1 g/dL (12.0-16.0); Hypochromia SLIGHT = 6-15 cells (100X) (0-5/hpf); MDiff Complete? YES; Mean Corpuscular HGB CONC 32.3 g/dL (32.0-36.0); Mean Corpuscular Hemoglobin 31.2 pg (27.0-31.0); Mean Corpuscular Volume 96.5 fL (78.0-98.0); Mean Platelet Volume 9.3 fL (7.4-10.4); Platelet Count 61 thou/uL (130-400); Platelet Morphology Comment Appears Decreased; RBC Distribution Width 13.8 % (11.5-14.5); White Blood Cell (WBC) Count 4.1 thou/uL (4.8-10.8)
[2022-02-16 19:51] LABS: ALT (SGPT) 31 U/L (8-55); AST (SGOT) 40 U/L (5-34); Albumin 3.5 g/dL (3.4-4.8); Alkaline Phosphatase 131 U/L (40-110); Anion Gap 13 mmol/L (10-20); BUN (Urea Nitrogen) 13 mg/dL (9.8-20.1); Bilirubin, Total 0.6 mg/dL (0.2-1.2); Calc. Creatinine Clearance 0 mL/min (70-130); Calcium 9.3 mg/dL (7.8-10.44); Carbon Dioxide 24 mmol/L (23-31); Chloride 110 mmol/L (98-107); Estimated GFR 95; Globulin 3.3 g/dL (2.4-3.5); Glucose 114 mg/dL (83-110); Magnesium 2.1 mg/dL (1.6-2.6); Potassium 4.2 mmol/L (3.5-5.1); Protein, Total 6.8 g/dL (5.8-8.1); Sodium 143 mmol/L (136-145)
[2022-02-16 20:55] LABS: Bilirubin Negative (Negative); Blood, Urine Negative (Negative); Clarity Clear (Clear); Glucose, Urine (Dipstick) Negative (Negative); Ketone, Urine Negative (Negative); Leukocyte Trace (Negative); Nitrite Negative (Negative); Protein, Urine (Dipstick) Negative (Neg-Trace)
[2022-02-16 21:05] LABS: Bacteria/HPF None Seen HPF (None Seen); Mucous/LPF Rare LPF (<2+); RBC/HPF None Seen HPF (0-3); Transitional Epithelial 0-3 HPF (None Seen); WBC/HPF 0-3 HPF (0-3)
== END 2022-02-16 21:26 | disposition home or self-care (01) ==
LOC: MADERS 18:51
DX: R42 Dizziness and giddiness (principal); R29.700 NIHSS score 0; D72.829 Elevated white blood cell count, unspecified; I10 Essential (primary) hypertension; Z87.891 Personal history of nicotine dependence; Z87.442 Personal history of urinary calculi
CPT/HCPCS: 70450; 71045; 80053; 81003; 81015; 83605; 83735; 84484; 85025; 87086; 93005; 96360; 96361; J7050

== ENCOUNTER 2022-05-24 01:09 | Emergency (ER) | payer OTHER, MEDICAID ==
[2022-05-24] MEDS ORDERED: Gabapentin 100 MG CAP ONE (01:46)
[2022-05-24 02:16] LABS: Anion Gap 11 mmol/L (10-20); BUN (Urea Nitrogen) 17 mg/dL (9.8-20.1); Calc. Creatinine Clearance 0 mL/min (70-130); Carbon Dioxide 23 mmol/L (23-31); Chloride 110 mmol/L (98-107); Estimated GFR 92; Glucose 116 mg/dL (83-110); Magnesium 1.9 mg/dL (1.6-2.6); Potassium 4.3 mmol/L (3.5-5.1); Sodium 140 mmol/L (136-145)
== END 2022-05-24 02:47 | disposition home or self-care (01) ==
LOC: MADERS 01:09
DX: R25.2 Cramp and spasm (principal); I10 Essential (primary) hypertension; Z87.891 Personal history of nicotine dependence; Z79.899 Other long term (current) drug therapy
CPT/HCPCS: 80048; 83735; 99283

== ENCOUNTER 2022-06-23 23:59 | Emergency (ER) | payer OTHER, MEDICAID ==
[2022-06-24] MEDS ORDERED: HYDROcodone/Acetaminophen 5/325 mg Tablet ONE (00:52)
[2022-06-24] MEDS ORDERED: predniSONE 20 MG TAB ONE (00:52)
[2022-06-24] MEDS ORDERED: Acyclovir 200 mg Capsule ONE (00:53)
== END 2022-06-24 01:20 | disposition home or self-care (01) ==
LOC: MADERS 23:59
DX: B02.9 Zoster without complications (principal); M54.2 Cervicalgia; I10 Essential (primary) hypertension; Z87.891 Personal history of nicotine dependence
CPT/HCPCS: 99282; J7512

== ENCOUNTER 2022-08-05 14:04 | Emergency (ER) | payer OTHER, MEDICAID ==
[2022-08-05 15:01] LABS: Bilirubin Negative (Negative); Blood, Urine Negative (Negative); Clarity Slightly Cloudy (Clear); Glucose, Urine (Dipstick) Negative (Negative); Ketone, Urine Negative (Negative); Leukocyte Trace (Negative); Nitrite Negative (Negative); Protein, Urine (Dipstick) Negative (Neg-Trace); Specific Gravity, Urine 1.025 (1.005-1.030); pH, Urine 7.5 (5.0-9.0)
[2022-08-05 15:01] LABS: ALT (SGPT) 29 U/L (8-55); AST (SGOT) 37 U/L (5-34); Albumin 3.4 g/dL (3.4-4.8); Alkaline Phosphatase 152 U/L (40-110); Anion Gap 13 mmol/L (10-20); BUN (Urea Nitrogen) 9 mg/dL (9.8-20.1); Bilirubin, Total 0.8 mg/dL (0.2-1.2); Calc. Creatinine Clearance 0 mL/min (70-130); Calcium 9.2 mg/dL (7.8-10.44); Carbon Dioxide 24 mmol/L (23-31); Chloride 110 mmol/L (98-107); Estimated GFR 94; Globulin 2.8 g/dL (2.4-3.5); Glucose 112 mg/dL (83-110); Potassium 3.8 mmol/L (3.5-5.1); Protein, Total 6.2 g/dL (5.8-8.1); Sodium 143 mmol/L (136-145)
[2022-08-05 15:03] LABS: #Basophils 0.1 thou/uL (0.0-0.2); #Eosinphils 0.1 thou/uL (0.0-0.7); #Monocytes 0.3 thou/uL (0.11-0.59); %Basophils 1.8 % (0.0-1.0); %Eosinophils 2.1 % (0.0-10.0); %Monocytes 9.4 % (0.0-10.0); %Neutrophils 56.7 % (42.0-75.0); Anisocytosis SLIGHT = 6-15 cells (100X) (0-5/hpf); Hemoglobin 13.8 g/dL (12.0-16.0); MDiff Complete? YES; Mean Corpuscular HGB CONC 33.4 g/dL (32.0-36.0); Mean Corpuscular Hemoglobin 32.2 pg (27.0-31.0); Mean Corpuscular Volume 96.4 fl (78.0-98.0); Mean Platelet Volume 7.1 fL (7.4-10.4); Platelet Count 77 10x3/uL (130-400); Platelet Morphology Comment Appears Decreased; RBC Distribution Width 13.4 % (11.5-14.5); Red Blood Cell (RBC) Count 4.28 mill/uL (4.20-5.40); White Blood Cell (WBC) Count 3.5 10x3/uL (4.8-10.8)
[2022-08-05 15:06] LABS: RBC/HPF 0-3 HPF (0-3); Squamous Epithelial 0-3 HPF (0-3); WBC/HPF 0-3 HPF (0-3)
[2022-08-05 15:07] LABS: Bacteria/HPF 1+ HPF (None Seen)
[2022-08-05] MEDS ORDERED: Acetaminophen/Codeine 30-300mg Tablet ONE (15:46)
== END 2022-08-05 15:50 | disposition home or self-care (01) ==
LOC: MADERS 14:04
DX: B02.29 Other postherpetic nervous system involvement (principal); R60.0 Localized edema; T42.6X5A Adverse effect of other antiepileptic and sedative-hypnotic drugs, initial encounter; D72.819 Decreased white blood cell count, unspecified; D69.6 Thrombocytopenia, unspecified; I10 Essential (primary) hypertension; Z87.891 Personal history of nicotine dependence
CPT/HCPCS: 36415; 80053; 81003; 81015; 83880; 85025; 99283

== ENCOUNTER 2022-08-18 20:11 | Emergency (ER) | payer OTHER ==
[~2022-08-18 20:11] MED LIST: Iopamidol 370 76% 125 ML VIAL FS ONE; Sodium Chloride 0.9% 100 ML BAG ONE
[2022-08-18] MEDS ORDERED: hydrALAZINE 20 MG/ML VIAL ONE ×2 (21:11→22:02)
[2022-08-18] MEDS ORDERED: Aspirin Chewable 81 MG TAB ONE (21:11)
[2022-08-18] MEDS ORDERED: Furosemide 40 MG/4 ML VIAL ONE (21:11)
[2022-08-18] MEDS ORDERED: Nitroglycerin 2% Ointment 1 INCH/1 GM Packet ONE (21:11)
[2022-08-18 21:27] LABS: Band 3 % (5-11); Eosinophils 1 % (0-10); Hemoglobin 13.4 g/dL (12.0-16.0); Lymphocytes 25 % (21-51); MDiff Complete? YES; Mean Corpuscular HGB CONC 34.4 g/dL (32.0-36.0); Mean Corpuscular Hemoglobin 32.3 pg (27.0-31.0); Mean Corpuscular Volume 93.7 fl (78.0-98.0); Monocytes 13 % (0-10); Neutrophil 57 % (42-75); Platelet Count 73 10x3/uL (130-400); Platelet Morphology Comment Appears Decreased; RBC Distribution Width 12.9 % (11.5-14.5); RBC Morphology Normal; Red Blood Cell (RBC) Count 4.14 mill/uL (4.20-5.40); White Blood Cell (WBC) Count 2.9 10x3/uL (4.8-10.8)
[2022-08-18 21:37] LABS: ALT (SGPT) 30 U/L (8-55); AST (SGOT) 35 U/L (5-34); Albumin 3.4 g/dL (3.4-4.8); Alkaline Phosphatase 137 U/L (40-110); Anion Gap 12 mmol/L (10-20); BUN (Urea Nitrogen) 10 mg/dL (9.8-20.1); Bilirubin, Total 0.8 mg/dL (0.2-1.2); Calc. Creatinine Clearance 0 mL/min (70-130); Calcium 9.2 mg/dL (7.8-10.44); Carbon Dioxide 25 mmol/L (23-31); Chloride 110 mmol/L (98-107); Estimated GFR 92; Glucose 129 mg/dL (83-110); Lipase 27 U/L (8-78); Potassium 3.9 mmol/L (3.5-5.1); Protein, Total 6.4 g/dL (5.8-8.1); Sodium 143 mmol/L (136-145)
[2022-08-18] MEDS ORDERED: Ondansetron PF 4 MG/2 ML Vial ONE (23:03)
== END 2022-08-18 23:42 | disposition short-term general hospital (02) ==
LOC: MADERS 20:11
DX: I16.0 Hypertensive urgency (principal); R60.9 Edema, unspecified; I10 Essential (primary) hypertension; Z79.899 Other long term (current) drug therapy; Z87.891 Personal history of nicotine dependence
CPT/HCPCS: 71045; 71275; 74174; 80053; 83690; 83880; 84484; 85025; 93005; J0360; 96374; 96375; 96376; J1940; J2405; Q9967

== ENCOUNTER 2022-10-08 21:50 | Emergency (ER) | payer OTHER, MEDICAID ==
[2022-10-08] MEDS ORDERED: Ipratropium/Albuterol 3 ML NEB ONE (22:34)
[2022-10-08] MEDS ORDERED: methylPREDNISolone Sod Succ/PF 125 MG/2 ML VIAL ONE (22:34)
[2022-10-08 22:44] LABS: #Basophils 0.1 thou/uL (0.0-0.2); #Eosinphils 0.1 thou/uL (0.0-0.7); #Lymphocytes 1.3 thou/uL (1.20-3.40); #Monocytes 0.6 thou/uL (0.11-0.59); #Neutrophils 3.4 thou/uL (1.40-6.50); %Basophils 1.2 % (0.0-1.0); %Eosinophils 2.7 % (0.0-10.0); %Lymphocytes 23.2 % (21.0-51.0); %Monocytes 10.2 % (0.0-10.0); %Neutrophils 62.7 % (42.0-75.0); Mean Corpuscular HGB CONC 33.5 g/dL (32.0-36.0); Mean Corpuscular Hemoglobin 33.2 pg (27.0-31.0); Mean Corpuscular Volume 99.1 fl (78.0-98.0); Mean Platelet Volume 8.9 fL (7.4-10.4); Platelet Count 86 10x3/uL (130-400); RBC Distribution Width 13.2 % (11.5-14.5); Red Blood Cell (RBC) Count 4.21 mill/uL (4.20-5.40); White Blood Cell (WBC) Count 5.4 10x3/uL (4.8-10.8)
[2022-10-08 22:59] LABS: ALT (SGPT) 19 U/L (8-55); AST (SGOT) 31 U/L (5-34); Albumin 3.5 g/dL (3.4-4.8); Alkaline Phosphatase 118 U/L (40-110); Anion Gap 13 mmol/L (10-20); BUN (Urea Nitrogen) 12 mg/dL (9.8-20.1); Bilirubin, Total 0.8 mg/dL (0.2-1.2); Calc. Creatinine Clearance 0 mL/min (70-130); Calcium 8.8 mg/dL (7.8-10.44); Carbon Dioxide 24 mmol/L (23-31); Chloride 107 mmol/L (98-107); Estimated GFR 92; Globulin 2.7 g/dL (2.4-3.5); Glucose 133 mg/dL (83-110); Potassium 3.9 mmol/L (3.5-5.1); Protein, Total 6.2 g/dL (5.8-8.1); Sodium 140 mmol/L (136-145)
[2022-10-08 23:00] LABS: CKMB 1.7 ng/mL (0-6.6)
[2022-10-08] MEDS ORDERED: Doxycycline 100 MG VIAL ONE (23:23)
== END 2022-10-09 00:43 | disposition home or self-care (01) ==
LOC: MADERS 21:50
DX: J45.901 Unspecified asthma with (acute) exacerbation (principal); J20.9 Acute bronchitis, unspecified; I10 Essential (primary) hypertension; Z87.891 Personal history of nicotine dependence
CPT/HCPCS: 71045; 80053; 82553; 83880; 84484; 85025; 87804; 93005; 94760; 96365; 96375; J2930; J7050; J7620

== ENCOUNTER 2023-03-08 14:52 | Emergency (ER) | payer OTHER, MEDICAID ==
[2023-03-08] MEDS ORDERED: Ipratropium/Albuterol 3 ML NEB ONE (16:18)
[2023-03-08 16:23] LABS: SARS-CoV-2 NAA Rapid Test DETECTED (NotDetected)
[2023-03-08] MEDS ORDERED: predniSONE 20 MG TAB ONE (16:39)
[2023-03-08] MEDS ORDERED: predniSONE 10 MG TAB ONE (16:39)
== END 2023-03-08 16:39 | disposition home or self-care (01) ==
LOC: MADERS 14:52
DX: U07.1 COVID-19 (principal); I10 Essential (primary) hypertension; Z87.891 Personal history of nicotine dependence
CPT/HCPCS: 71045; U0002; J7512; J7620

== ENCOUNTER 2023-04-06 23:23 | Emergency (ER) | payer MEDICAID, OTHER | END 2023-04-06 23:57 | disposition home or self-care (01) | LOC: MADERS 23:23 | DX: L03.116 Cellulitis of left lower limb (principal); I10 Essential (primary) hypertension; Z87.891 Personal history of nicotine dependence | CPT/HCPCS: 99283 ==

== ENCOUNTER 2023-06-09 19:08 | Emergency (ER) | payer OTHER ==
[2023-06-09] MEDS ORDERED: predniSONE 20 MG TAB ONE (20:43)
== END 2023-06-09 20:58 | disposition home or self-care (01) ==
LOC: MADERS 19:08
DX: G51.0 Bell's palsy (principal); I10 Essential (primary) hypertension; Z87.891 Personal history of nicotine dependence
CPT/HCPCS: 70450; J7512

== ENCOUNTER 2023-11-04 21:26 | Emergency (ER) | payer OTHER ==
[2023-11-04] MEDS ORDERED: NEOMYCIN-POLYMYXIN-HC EAR SUSP 200 DROP/10 ML BOT ONE (22:44)
[2023-11-04] MEDS ORDERED: HYDROcodone/Acetaminophen 5/325 mg Tablet ONE (22:44)
[2023-11-04 23:39] LABS: Anion Gap 14 mmol/L (10-20); BUN (Urea Nitrogen) 14 mg/dL (9.8-20.1); Calc. Creatinine Clearance 0 mL/min (70-130); Calcium 8.8 mg/dL (7.8-10.44); Carbon Dioxide 22 mmol/L (23-31); Chloride 109 mmol/L (98-107); Estimated GFR 93; Glucose 101 mg/dL (83-110); Potassium 4.6 mmol/L (3.5-5.1); Sodium 140 mmol/L (136-145)
[2023-11-04 23:40] LABS: Band 1 % (5-11); Eosinophils 3 % (0-10); Hemoglobin 12.5 g/dL (12.0-16.0); Lymphocytes 32 % (21-51); MDiff Complete? YES; Mean Corpuscular HGB CONC 31.9 g/dL (32.0-36.0); Mean Corpuscular Hemoglobin 32.1 pg (27.0-31.0); Mean Corpuscular Volume 100.5 fl (78.0-98.0); Mean Platelet Volume 7.8 fL (7.4-10.4); Monocytes 8 % (0-10); Neutrophil 56 % (42-75); Platelet Adequacy Comment Appears Decreased; Platelet Count 60 10x3/uL (130-400); RBC Distribution Width 13.9 % (11.5-14.5); Red Blood Cell (RBC) Count 3.89 mill/uL (4.20-5.40); White Blood Cell (WBC) Count 4.7 10x3/uL (4.8-10.8)
[2023-11-05 00:12] LABS: Bilirubin Small (Negative); Blood, Urine Negative (Negative); CAUTI Indications for Culture Dysuria,urgency,freq; Clarity Hazy (Clear); Glucose, Urine (Dipstick) Negative (Negative); Ketone, Urine Trace mg/dL (Negative); Leukocyte Negative (Negative); Nitrite Negative (Negative); Protein, Urine (Dipstick) Negative (Neg-Trace); Specific Gravity, Urine 1.025 (1.005-1.030)
[2023-11-05 00:13] LABS: Bacteria/HPF 1+ HPF (None Seen); Mucous/LPF 2+ LPF (<2+)
[2023-11-05 00:14] LABS: Urine Culture Reflex No No
== END 2023-11-05 00:35 | disposition home or self-care (01) ==
LOC: MADERS 21:26
DX: H92.01 Otalgia, right ear (principal); D69.6 Thrombocytopenia, unspecified; I10 Essential (primary) hypertension; Z87.891 Personal history of nicotine dependence
CPT/HCPCS: 36415; 80048; 81001; 85025; 99284

== ENCOUNTER 2024-03-27 01:37 | Emergency (ER) | payer OTHER ==
[2024-03-27 02:20] LABS: Bilirubin Moderate (Negative); Blood, Urine Trace (Negative); Clarity Slightly Cloudy (Clear); Glucose, Urine (Dipstick) 100 mg/dL (Negative); Ketone, Urine Trace mg/dL (Negative); Leukocyte Negative (Negative); Nitrite Negative (Negative); Protein, Urine (Dipstick) Negative (Neg-Trace); Specific Gravity, Urine 1.025 (1.005-1.030); Urobilinogen > or = 8.0 mg/dL (Less than 2); pH, Urine 6.5 (5.0-9.0)
[2024-03-27] MEDS ORDERED: Ondansetron PF 4 MG/2 ML Vial ONE (02:21)
[2024-03-27] MEDS ORDERED: Morphine 4 MG/ML VIAL ONE (02:21)
[2024-03-27] MEDS ORDERED: Milk Of Magnesia 30 ML UDCUP ONE (02:22)
[2024-03-27] MEDS ORDERED: Famotidine/PF 20 mg/2ml Vial ONE (02:22)
[2024-03-27] MEDS ORDERED: Lidocaine Viscous Sol 2% 15 ml UD Cup ONE (02:22)
[2024-03-27 02:24] LABS: Bacteria/HPF Rare-Few HPF (None Seen); CAUTI Indications for Culture Pelvic or flank pain; RBC/HPF 0-3 HPF (0-3); Urine Culture Reflex No No
[2024-03-27 02:45] LABS: ALT (SGPT) 42 U/L (8-55); AST (SGOT) 73 U/L (5-34); Albumin 2.9 g/dL (3.4-4.8); Alkaline Phosphatase 160 U/L (40-110); Anion Gap 15 mmol/L (10-20); BUN (Urea Nitrogen) 16 mg/dL (9.8-20.1); Band 2 % (5-11); Bilirubin, Total 2.3 mg/dL (0.2-1.2); Calc. Creatinine Clearance 0 mL/min (70-130); Calcium 8.7 mg/dL (7.8-10.44); Carbon Dioxide 20 mmol/L (23-31); Chloride 110 mmol/L (98-107); Estimated GFR 91; Globulin 3.3 g/dL (2.4-3.5); Glucose 133 mg/dL (83-110); Hematocrit 40.4 % (36.0-47.0); Lipase 28 U/L (8-78); Lymphocytes 17 % (21-51); MDiff Complete? YES; Mean Corpuscular HGB CONC 32.3 g/dL (32.0-36.0); Mean Corpuscular Hemoglobin 32.2 pg (27.0-31.0); Mean Corpuscular Volume 99.8 fl (78.0-98.0); Mean Platelet Volume 8.7 fL (7.4-10.4); Monocytes 11 % (0-10); Neutrophil 70 % (42-75); Platelet Count 64 10x3/uL (130-400); Potassium 3.7 mmol/L (3.5-5.1); Protein, Total 6.2 g/dL (5.8-8.1); RBC Distribution Width 13.6 % (11.5-14.5); Red Blood Cell (RBC) Count 4.05 mill/uL (4.20-5.40); Sodium 141 mmol/L (136-145); White Blood Cell (WBC) Count 4.3 10x3/uL (4.8-10.8)
[2024-03-27 02:46] LABS: Troponin I 0.012 ng/mL (< 0.028)
[2024-03-27] MEDS ORDERED: Iopamidol 370 76% 100 ML VIAL ONE (09:00)
[2024-03-27] MEDS ORDERED: Sodium Chloride 0.9% 100 ML BAG ONE (09:00)
== END 2024-03-27 05:09 | disposition home or self-care (01) ==
LOC: MADERS 01:37
DX: K74.60 Unspecified cirrhosis of liver (principal); I10 Essential (primary) hypertension; Z87.891 Personal history of nicotine dependence
CPT/HCPCS: 71275; 74174; 80053; 81001; 83605; 83690; 84484; 85025; 85379; 93005; 94760; 96374; 96375; J2272; J2405; J3490; Q9967

== ENCOUNTER 2024-04-20 18:44 | Emergency (ER) | payer MEDICARE, OTHER ==
[~2024-04-20 18:44] MED LIST changes: +Iopamidol 370 76% 100 ML VIAL ONE; -Iopamidol 370 76% 125 ML VIAL FS ONE; -Sodium Chloride 0.9% 100 ML BAG ONE
[2024-04-20] MEDS ORDERED: Sucralfate 1 GM TAB ONE (19:29)
[2024-04-20] MEDS ORDERED: Pantoprazole 40 MG VIAL ONE (19:29)
[2024-04-20] MEDS ORDERED: Ondansetron PF 4 MG/2 ML Vial ONE (19:29)
[2024-04-20] MEDS ORDERED: Sodium Chloride 0.9% 1,000 ML ONE (19:29)
[2024-04-20 19:47] LABS: Troponin I Less than 0.010 ng/mL (< 0.028)
[2024-04-20 19:48] LABS: ALT (SGPT) 53 U/L (8-55); AST (SGOT) 91 U/L (5-34); Albumin 2.8 g/dL (3.4-4.8); Alkaline Phosphatase 177 U/L (40-110); Anion Gap 12 mmol/L (10-20); BUN (Urea Nitrogen) 16 mg/dL (9.8-20.1); Calc. Creatinine Clearance 0 mL/min (70-130); Calcium 8.6 mg/dL (7.8-10.44); Carbon Dioxide 21 mmol/L (23-31); Chloride 109 mmol/L (98-107); Eosinophils 2 % (0-10); Estimated GFR 91; Globulin 3.3 g/dL (2.4-3.5); Glucose 162 mg/dL (83-110); Hematocrit 38.4 % (36.0-47.0); Hemoglobin 12.6 g/dL (12.0-16.0); Lipase 20 U/L (8-78); Lymphocytes 13 % (21-51); MDiff Complete? YES; Mean Corpuscular HGB CONC 32.8 g/dL (32.0-36.0); Mean Corpuscular Hemoglobin 32.2 pg (27.0-31.0); Mean Corpuscular Volume 98.2 fl (78.0-98.0); Mean Platelet Volume 8.7 fL (7.4-10.4); Monocytes 8 % (0-10); Neutrophil 77 % (42-75); Platelet Count 60 10x3/uL (130-400); Potassium 4.3 mmol/L (3.5-5.1); Protein, Total 6.1 g/dL (5.8-8.1); Red Blood Cell (RBC) Count 3.91 mill/uL (4.20-5.40); Sodium 138 mmol/L (136-145); White Blood Cell (WBC) Count 5.1 10x3/uL (4.8-10.8)
[2024-04-20 20:19] LABS: Bilirubin Moderate (Negative); Blood, Urine Negative (Negative); Glucose, Urine (Dipstick) 100 mg/dL (Negative); Ketone, Urine Trace mg/dL (Negative); Leukocyte Negative (Negative); Nitrite Negative (Negative); Protein, Urine (Dipstick) Negative (Neg-Trace); Specific Gravity, Urine 1.025 (1.005-1.030); Urobilinogen > or = 8.0 mg/dL (Less than 2)
[2024-04-20 20:20] LABS: Bacteria/HPF 2+ HPF (None Seen); CAUTI Indications for Culture Dysuria,urgency,freq; Clarity Hazy (Clear); Mucous/LPF 2+ LPF (<2+); RBC/HPF None Seen HPF (0-3); Squamous Epithelial 21-50 HPF (0-3)
[2024-04-20 20:22] LABS: Urine Culture Reflex No No
== END 2024-04-20 21:00 | disposition home or self-care (01) ==
LOC: MADERS 18:44
DX: K74.60 Unspecified cirrhosis of liver (principal); I10 Essential (primary) hypertension; Z87.891 Personal history of nicotine dependence
CPT/HCPCS: 74177; 81001; 83605; 83690; 84484; 93005; 96361; 96374; 96375; J2405; J2470; J7030; Q9967

== ENCOUNTER 2024-11-12 23:50 | Emergency (ER) | payer OTHER ==
[2024-11-13] MEDS ORDERED: Lidocaine 1% PF 5 ML VIAL ONE (00:31)
[2024-11-13] MEDS ORDERED: cefTRIAXone (ROCEPHIN) 1 GM VIAL ONE (00:31)
== END 2024-11-13 01:13 | disposition home or self-care (01) ==
LOC: MADERS 23:50
DX: L03.116 Cellulitis of left lower limb (principal); I10 Essential (primary) hypertension; Z90.49 Acquired absence of other specified parts of digestive tract; Z87.891 Personal history of nicotine dependence; Z79.899 Other long term (current) drug therapy
CPT/HCPCS: 96372; 99283; J0696

== ENCOUNTER 2025-03-21 14:29 | Outpatient (CLI) | payer OTHER ==
[2025-03-21 14:59] LABS: #Basophils 0.1 thou/uL (0.0-0.2); #Eosinophils 0.1 thou/uL (0.0-0.7); #Lymphocytes 1.4 thou/uL (1.20-3.40); #Monocytes 0.4 thou/uL (0.11-0.59); #Neutrophils 2.2 thou/uL (1.40-6.50); %Basophils 2.2 % (0.0-1.0); %Eosinophils 2.5 % (0.0-10.0); %Lymphocytes 33.1 % (21.0-51.0); %Monocytes 9.9 % (0.0-10.0); %Neutrophils 52.4 % (42.0-75.0); Hematocrit 36.2 % (36.0-47.0); Hemoglobin 11.9 g/dL (12.0-16.0); Mean Corpuscular Hemoglobin 33.1 pg (27.0-31.0); Mean Corpuscular Volume 100.8 fl (78.0-98.0); Platelet Count 80 10x3/uL (130-400); Red Blood Cell (RBC) Count 3.59 mill/uL (4.20-5.40); White Blood Cell (WBC) Count 4.1 10x3/uL (4.8-10.8)
[2025-03-21 15:01] LABS: ALT (SGPT) 27 U/L (Less than 34); AST (SGOT) 36 U/L (11-34); Albumin 2.7 g/dL (3.1-4.5); Alkaline Phosphatase 103 U/L (40-110); Anion Gap 10 mmol/L (10-20); BUN (Urea Nitrogen) 20 mg/dL (9.8-20.1); Bilirubin, Total 1.8 mg/dL (0.3-1.2); Calc. Creatinine Clearance 0 mL/min (70-130); Calcium 8.6 mg/dL (7.8-10.44); Carbon Dioxide 22 mmol/L (23-31); Chloride 113 mmol/L (98-107); Globulin 3.0 g/dL (2.4-3.5); Glucose 100 mg/dL (83-110); Potassium 4.2 mmol/L (3.5-5.1); Sodium 141 mmol/L (136-145)
== END 2025-03-21 14:30 | disposition home or self-care (01) ==
LOC: MADLAB 14:29
PROVIDERS: ATTEND Family Medicine
DX: I10 Essential (primary) hypertension (principal); D69.3 Immune thrombocytopenic purpura
CPT/HCPCS: 36415; 80053; 85025

== ENCOUNTER 2025-04-12 23:51 | Emergency (ER) | payer OTHER ==
[2025-04-13] MEDS ORDERED: Sulfameth/Trimethoprim DS 800-160mg TAB ONE (00:25)
[2025-04-13] MEDS ORDERED: Acetaminophen 500 MG TAB ONE (00:25)
[2025-04-13] MEDS ORDERED: Fluconazole 100 MG TAB ONE (00:25)
[2025-04-13] MEDS ORDERED: Amoxicillin/Potassium Clav 875 MG TAB ONE (00:26)
== END 2025-04-13 00:40 | disposition home or self-care (01) ==
LOC: MADERS 23:51
DX: L03.115 Cellulitis of right lower limb (principal); I10 Essential (primary) hypertension; I89.0 Lymphedema, not elsewhere classified; K76.0 Fatty (change of) liver, not elsewhere classified; Z79.899 Other long term (current) drug therapy
CPT/HCPCS: 99283

== ENCOUNTER 2025-04-19 10:34 | Outpatient (CLI) | payer OTHER ==
[2025-04-19 11:25] LABS: ALT (SGPT) 27 U/L (Less than 34); AST (SGOT) 42 U/L (11-34); Albumin 2.8 g/dL (3.1-4.5); Alkaline Phosphatase 119 U/L (40-110); Bilirubin, Direct 0.5 mg/dL (0.1-0.3); Bilirubin, Total 1.1 mg/dL (0.3-1.2)
[2025-04-19 11:47] LABS: #Basophils 0.1 thou/uL (0.0-0.2); #Eosinophils 0.2 thou/uL (0.0-0.7); #Lymphocytes 1.6 thou/uL (1.20-3.40); #Monocytes 0.5 thou/uL (0.11-0.59); #Neutrophils 2.6 thou/uL (1.40-6.50); %Basophils 2.5 % (0.0-1.0); %Eosinophils 4.4 % (0.0-10.0); %Lymphocytes 32.1 % (21.0-51.0); %Monocytes 9.0 % (0.0-10.0); %Neutrophils 52.0 % (42.0-75.0); Hematocrit 38.4 % (36.0-47.0); Hemoglobin 12.3 g/dL (12.0-16.0); MDiff Complete? YES; Macrocytosis SLIGHT = 6-15 cells (100X) (0-5/hpf); Mean Corpuscular Hemoglobin 33.6 pg (27.0-31.0); Mean Corpuscular Volume 104.8 fl (78.0-98.0); Platelet Adequacy Comment Appears Decreased; Platelet Count 98 10x3/uL (130-400); Red Blood Cell (RBC) Count 3.66 mill/uL (4.20-5.40); White Blood Cell (WBC) Count 5.0 10x3/uL (4.8-10.8)
[2025-04-19 18:23] LABS: Iron 113 ug/dL (50-170); Iron Binding Capacity, Total 260 mcg/dL (265-497)
== END 2025-04-19 10:35 ==
LOC: MADLAB 10:34
PROVIDERS: ATTEND Family Medicine
DX: D64.9 Anemia, unspecified (principal); R74.8 Abnormal levels of other serum enzymes
CPT/HCPCS: 36415; 80076; 83540; 83550; 85025

== ENCOUNTER 2025-06-08 12:05 | Emergency (ER) | payer OTHER ==
[2025-06-08] MEDS ORDERED: Cyclobenzaprine 10 MG TAB ONE (12:48)
== END 2025-06-08 14:45 | disposition home or self-care (01) ==
LOC: MADERS 12:05
DX: S86.912A Strain of unspecified muscle(s) and tendon(s) at lower leg level, left leg, initial encounter (principal); S20.212A Contusion of left front wall of thorax, initial encounter; S50.02XA Contusion of left elbow, initial encounter; E66.9 Obesity, unspecified; I10 Essential (primary) hypertension; W01.0XXA Fall on same level from slipping, tripping and stumbling without subsequent striking against object, initial encounter
CPT/HCPCS: J1885